=== PATIENT | female | born 1990 | race American Indian/Alaskan Native ===

== ENCOUNTER 2021-03-06 17:39 | Outpatient (CLI) | payer MEDICAID ==
[2021-03-06 18:28] VITALS: BP 109/70
--- NOTE | 2021-03-06 23:59 | Ultrasound Report ---
Ultrasound biophysical profile INDICATION: Decreased movement FINDINGS: Biophysical profile measures 8 out of 8 with heart rate 143. 38 weeks 4 days. IMPRESSION: Biophysical profile 8 out of 8 Limited abdominal ultrasound INDICATION: Decreased movement FINDINGS: Single live intrauterine in cephalic position. VEE 9.0 cm. heart rate 1 43 bpm. IMPRESSION: Single live intrauterine . VEE 9.0 cm Signer Name: Tip Garcia MD Signed: 03/06/2021 11:55 PM Workstation Name: [id number]
== END 2021-03-06 22:00 | disposition home or self-care (01) ==
LOC: TRG 17:39 → APU 18:14 → TRG 22:00
PROVIDERS: ATTEND Obstetrics & Gynecology
DX: O36.8130 Decreased fetal movements, third trimester, not applicable or unspecified (principal); Z3A.38 38 weeks gestation of pregnancy
CPT/HCPCS: 59025; 76815; 76819

== ENCOUNTER 2021-03-09 08:02 | Outpatient (CLI) | payer MEDICAID | END 2021-03-09 11:42 | disposition home or self-care (01) | LOC: TRG 08:02 → APU 08:03 | CPT/HCPCS: 59025 ==

== ENCOUNTER 2021-03-10 00:36 | Inpatient (IN) | payer MEDICAID ==
[2021-03-10] MEDS ORDERED: OXYTOCIN 10 UNIT/1 ML INJ ONE (01:26)
[2021-03-10] MEDS ORDERED: OXYTOCIN DRIP 30,000 MILLIUNITS/500 ML BAG IV ONE (01:26)
[2021-03-10] MEDS ORDERED: LIDOCAINE (2%) 20 MG/1 ML VIAL 20 ML MDV INFILTRATI ONE ×2 (01:29→01:50)
[2021-03-10] MEDS ORDERED: ePHEDrine SULFATE 50 MG/1 ML INJ IV PRN (01:50)
[2021-03-10] MEDS ORDERED: MINERAL OIL 30 ML ORAL LIQD PO PRN (01:50)
[2021-03-10] MEDS ORDERED: OXYTOCIN 10 UNIT/1 ML INJ IM PRN (01:50)
[2021-03-10] MEDS ORDERED: TERBUTALINE 1 MG/1 ML INJ SUB-Q PRN (01:50)
[2021-03-10] MEDS ORDERED: CARBOPROST TROMETHAMINE 250 MCG/1 ML INJ IM PRN (01:50)
[2021-03-10] MEDS ORDERED: miSOPROStol 200 MCG TAB PR PRN (01:50)
[2021-03-10] MEDS ORDERED: LOPERAMIDE 2 MG CAP PO PRN (01:50)
[2021-03-10] MEDS ORDERED: METHYLERGONOVINE MALEATE 0.2 MG/ML VIAL IM PRN (01:50)
[2021-03-10] MEDS ORDERED: ONDANSETRON 4 MG/2 ML INJ IV PRN (01:50)
[2021-03-10] MEDS ORDERED: MAGNESIUM HYDROXIDE (MOM) ORAL LIQD UDC PO PRN (01:55)
[2021-03-10] MEDS ORDERED: LANOLIN/ZINC/DIMETHICONE (LANSINOH) 7 GM TP PRN (01:55)
[2021-03-10] MEDS ORDERED: PROMETHAZINE 25 MG TAB PO PRN (01:55)
[2021-03-10] MEDS ORDERED: WITCH HAZEL/ GLYCERIN PAD TP PRN (01:55)
[2021-03-10] MEDS ORDERED: oxyCODONE /ACETAMINOPHEN 5-325MG TAB PO PRN (01:55)
[2021-03-10] MEDS ORDERED: diphenhydrAMINE 25 MG CAP PO PRN (01:55)
[2021-03-10] MEDS ORDERED: LACTATED RINGERS 1,000 ML IV SCH (02:00)
[2021-03-10] MEDS ORDERED: OXYTOCIN DRIP 30 UNITS/500 ML BAG IV SCH ×2 (02:00)
--- NOTE | 2021-03-10 02:11 | Procedure Note ---
OB Delivery Note - Delivery Date of Delivery: 03/10/21 (0124) Surgeon: SUREKHA ADAMS Estimated blood loss: 300cc - Vaginal Delivery presentation: vertex Delivery position: OA Intrapartum events: precipitous labor- <3hr Delivery induction: none Delivery augmentation: rupture of membranes (SROM @ 0110) Delivery monitor: external FHT, external uterine Route of delivery: Delivery placenta: spontaneous (0127, gaines) Delivery cord: 3 umbilical vessels Episiotomy: none Delivery laceration: other (bilateral periurethral) Delivery repair: chromic (2.0) Anesthesia: local Delivery comments: Pt presented to hospital fully dilated. Precipitous delivery performed by Dr. Finn Adams and placed directly to maternal abdomen. Cord double clamped and cut. Cord blood collected and sent to lab. Uterus firm @ U-2, hemostasis maintained. Bilateral brian-urethral tears, repaired. Mother and baby safe, stable and left in care of RN. - A at 1 minute: 8 at 5 minutes: 9 Gender: Male (Weight: 2826 gms (6lbs 4 ozs) 18.75 inches)
--- NOTE | 2021-03-10 02:26 | History and Physical Report ---
History of Present Illness Date of examination: 03/10/21 Date of admission: 03/10/21 Chief complaint: Frequent painful ctxs History of present illness: 30yo, @ 39.1 wks, initiated care with [facility] at 11.3 wks gestation. Her has been complicated by HSV-1 positive status and GBS + status. She presents to [facility] completely dilated and ready to push. Reports + FM. Denies VB or LOF. Labs: O+, antibody negative; rubella immune; HIV negative; HBsAg negative; RPR negative; GC/Chlamydia negative; cystic fibrosis negative; Quad screen negative; 1 hr gtt - 90; GBS positive. Past History Past Medical History: no pertinent history Past Surgical History: no surgical history Family/Genetic History: none Social history: single, full code. denies: smoking, alcohol abuse, prescription drug abuse, IV drug use - Obstetrical History Expected Date of Delivery: 03/16/21 Actual Gestation: 39 Week(s) 1 Day(s) : 2 Para: 1 Hx # Term Pregnancies: 1 Number of Pregnancies: 0 Spontaneous Abortions: 0 Induced : 0 Number of Living Children: 1 #1 Gender: Female year: Method of Delivery: Vaginal Complications: none Medications and Allergies Allergies Allergy/AdvReac Type Severity Reaction Status Date / Time No Known Allergies Allergy Verified 03/06/21 18:37 Active Meds: Active Medications Bisacodyl (Bisacodyl 10 Mg Rect Supp) 10 mg OH BID PRN PRN Reason: Constipation Carboprost Tromethamine (Carboprost Tromethamine 250 Mcg/1 Ml Inj) 250 mcg IM ONCE PRN PRN Reason: Uterine Bleeding Diphenhydramine HCl (Diphenhydramine 25 Mg Cap) 25 mg PO Q6H PRN PRN Reason: Itching Ephedrine Sulfate (Ephedrine Sulfate 50 Mg/1 Ml Inj) 10 mg IV Q2M PRN PRN Reason: Hypotension Oxytocin/Sodium Chloride (Pitocin/Ns 30 Unit/500ml) 30 units in 500 mls @ 2 mls/hr IV TITR RANDI; Protocol Lactated Ringer's (Lactated Ringers) 1,000 mls @ 125 mls/hr IV DIRECT RANDI Oxytocin/Sodium Chloride (Pitocin/Ns 30 Unit/500ml) 30 units in 500 mls @ 40 mls/hr IV TITR RANDI; Protocol Ibuprofen (Ibuprofen 600 Mg Tab) 600 mg PO Q6H RANDI Lidocaine (Lidocaine (2%) 20 Mg/1 Ml Vial 20 Ml Mdv) 20 ml INFILTRATI ONCE ONE Stop: 03/10/21 01:51 Loperamide HCl (Loperamide 2 Mg Cap) 2 mg PO ONCE PRN PRN Reason: give with Hemabate Magnesium Hydroxide (Magnesium Hydroxide (Mom) Oral Liqd Udc) 30 ml PO HS PRN PRN Reason: Constipation Methylergonovine Maleate (Methylergonovine Maleate 0.2 Mg/Ml Vial) 0.2 mg IM ONCE PRN PRN Reason: Uterine Bleeding Mineral Oil (Mineral Oil 30 Ml Oral Liqd) 30 ml PO QHS PRN PRN Reason: Constipation Misoprostol (Misoprostol 200 Mcg Tab) 800 mcg OH ONCE PRN PRN Reason: Uterine Bleeding Multi-Ingredient Ointment (Lanolin/Zinc/Dimethicone (Lansinoh) 7 Gm) 1 applic TP PRN PRN PRN Reason: Sore Nipples Multivitamins/Iron/Calcium ( [id number] Fumarate-Folic Acid Vit Tab) 1 each PO QDAY [facility] Ondansetron HCl (Ondansetron 4 Mg/2 Ml Inj) 4 mg IV Q8H PRN PRN Reason: Nausea And Vomiting Oxycodone/Acetaminophen (Oxycodone /Acetaminophen 5-325mg Tab) 1 tab PO Q6H PRN PRN Reason: Pain, Moderate (4-6) Oxytocin (Oxytocin 10 Unit/1 Ml Inj) 10 unit IM ONCE PRN PRN Reason: Uterine Bleeding Promethazine HCl (Promethazine 25 Mg Tab) 25 mg PO Q6H PRN PRN Reason: Nausea And Vomiting Sodium Chloride (Sodium Chloride 0.9% 10 Ml Flush Syringe) 10 ml IV PRN NR Terbutaline Sulfate (Terbutaline 1 Mg/1 Ml Inj) 0.25 mg SUB-Q ONCE PRN PRN Reason: Hyperstimulation/Hypertonicity Witch Pauly/Glycerin (Witch Pauly/ Glycerin Pad) 1 each TP PRN PRN PRN Reason: Hemorrhoid/cleansing/soothing Review of Systems All systems: negative Genitourinary: contractions - Vital Signs Vital signs: Vital Signs Pulse BP 73 115/68 03/10/21 01:53 03/10/21 01:53 Temp Pulse Resp BP Pulse Ox 65 122/72 03/10/21 02:10 03/10/21 02:10 - Physical Exam Breasts: Positive: normal Cardiovascular: Regular rate Lungs: Positive: Normal air movement Abdomen: Positive: other (gravid) Genitourinary (Female): Positive: normal external genitalia, normal perenium Vagina: Positive: normal moisture Uterus: Positive: other (firm @ U -2) Extremities: Positive: normal Deep Tendon Reflex Grade: Normal +2 Results All other labs normal. Assessment and Plan - Patient Problems (1) Status post normal vaginal delivery Current Visit: Yes Status: Acute Plan to address problem: Transfer to M/B Routine PP orders Anticipate d/c home in 48 hrs (2) Positive GBS test Current Visit: Yes Status: Acute Plan to address problem: Did not receive any Abt secondary to precipitous delivery
[2021-03-10 03:25] LABS: Hematocrit 30.1 % (30.3-42.9); Hemoglobin 9.5 gm/dl (10.1-14.3); Mean Corpuscular HGB Conc 32 % (30-34); Mean Corpuscular Volume 77 fl (79-97); Platelet Count 249 K/mm3 (140-440); Red Blood Count 3.94 M/mm3 (3.65-5.03); Red Cell Distribution Width 16.7 % (13.2-15.2)
[2021-03-10 10:13] LABS: Hematocrit 28.6 % (30.3-42.9); Hemoglobin 9.1 gm/dl (10.1-14.3)
[2021-03-10] MEDS: PRENATAL VIT27-FE FUMARATE-FOLIC ACID VIT TAB PO SCH (10:49)
[2021-03-10] MEDS: IBUPROFEN 600 MG TAB PO SCH ×2 (12:56→18:43)
[2021-03-11] MEDS: IBUPROFEN 600 MG TAB PO SCH ×2 (08:00→15:44)
[2021-03-11] MEDS: PRENATAL VIT27-FE FUMARATE-FOLIC ACID VIT TAB PO SCH (09:21)
--- NOTE | 2021-03-11 13:29 | Progress Note ---
Assessment and Plan A: PPD#1 s/p at term GBS positive, inadequately treated P: Routine care Anticipate discharge tomorrow Subjective - Subjective Date of service: 03/11/21 Principal diagnosis: s/p at term Interval history: Pt without complaints. Patient reports: appetite normal, voiding normally, pain well controlled, ambulating normally, no dizzy ambulation [place]: doing well Objective - Vital Signs Latest vital signs: Vital Signs Temp Pulse Resp BP Pulse Ox 03/11/21 08:31 97.9 F 60 16 100/58 100 03/11/21 01:10 98.2 F 68 16 98/64 99 03/10/21 16:04 98.1 F 70 18 107/68 100 Intake and Output 03/10/21 03/11/21 03/11/21 22:59 06:59 14:59 Intake Total 1080 240 120 Output Total 350 Balance 730 240 120 Intake: Oral 480 120 Intake, Free Water 600 240 Output: Urine 350 Void 350 Other: Total, Intake Amount 480 120 Total, Output Amount 350 # Voids Void 2 2 1 - Exam Breasts: Present: deferred Abdomen: Present: soft Uterus: Present: fundal height at umbilicus Extremities: Present: normal
--- NOTE | 2021-03-11 13:31 | Discharge Summary ---
Providers - Providers Date of Admission: 03/10/21 01:24 Date of discharge: 03/12/21 Attending physician: BRIDGER MENDEZ 03/10/21 01:57 Consult to [employer] [CONS] Routine Reason For Exam: assistance with , SNS Primary care physician: BRIDGER MENDEZ Hospitalization Reason for admission: active labor Delivery: Procedure details: Please see delivery note Episiotomy: none Laceration: other (Bilateral periurethral ) Incision: normal Other procedures: none complications: none Discharge diagnosis: IUP at term delivered [place] baby: male Hospital course: The patient was admitted in active labor and went on to have a spontaneous vaginal delivery which she tolerated well. Her course was uneventful and she met discharge criteria on day #2. She will follow-up in the office with Dr. Mendez in 6 weeks. Condition at discharge: Stable Disposition: DC-01 TO HOME OR SELFCARE - Discharge Diagnoses (1) Term of male Status: Acute (2) Positive GBS test Status: Acute (3) Status post normal vaginal delivery Status: Acute (4) Anemia Status: Acute Qualifiers: Anemia type: unspecified type Qualified Code(s): D64.9 - Anemia, unspecified Plan - Discharge Medications Prescriptions: Ferrous Sulfate [Feosol 325 MG tab] 325 mg PO BID #60 tablet Ibuprofen [Motrin] 600 mg PO Q6H PRN #30 tablet PRN Reason: Pain - Provider Discharge Summary Activity: routine, no sex for 6 weeks, no heavy lifting 4 weeks, no strenuous exercise Diet: routine Instructions: routine Additional instructions: [] Smoking cessation referral if applicable(refer to patient education folder for contact #) [] Refer to [facility] Booklet Call your doctor immediately for: * Fever > 100.5 * Heavy vaginal bleeding ( >1 pad per hour) * Severe persistent headache * Shortness of breath * Reddened, hot, painful area to leg or breast * Drainage or odor from incision. * Keep incision clean and dry at all times and follow doctor's instructions regarding bathing/showering - Follow up plan Follow up: BRIDGER MENDEZ MD [Primary Care Provider] - 6 Weeks (please schedule your son's circumcision)
[2021-03-12] MEDS: IBUPROFEN 600 MG TAB PO SCH ×2 (07:14)
[2021-03-12] MEDS: PRENATAL VIT27-FE FUMARATE-FOLIC ACID VIT TAB PO SCH (10:35)
[2021-03-12 14:07] VITALS: BP 121/72
== END 2021-03-12 13:30 | disposition home or self-care (01) | DRG 774 ==
LOC: APU 00:36 → TRG 00:36 → LD 01:17 → TRG 01:50 → OB 04:21
PROVIDERS: ADMIT Obstetrics & Gynecology; ATTEND Obstetrics & Gynecology
PROC: 10E0XZZ Delivery of Products of Conception, External Approach (ICD-10-PCS; principal; 2021-03-10)
PROC: 0UQMXZZ Repair Vulva, External Approach (ICD-10-PCS; 2021-03-10)
DX: O99.824 Streptococcus B carrier state complicating childbirth (principal); O98.52 Other viral diseases complicating childbirth; Z3A.39 39 weeks gestation of pregnancy; Z37.0 Single live birth; Z20.822 Contact with and (suspected) exposure to COVID-19; B00.9 Herpesviral infection, unspecified; O71.82 Other specified trauma to perineum and vulva; O90.81 Anemia of the puerperium; O62.3 Precipitate labor; D64.9 Anemia, unspecified
CPT/HCPCS: 36415; 59025; 85014; 85018; 85027; 86850; 86900; 86901; 99211; G0378; G0463; J2590; U0003